=== PATIENT | male | born 1965 | race African-American/Black ===

== ENCOUNTER → 2017-01-01 | Outpatient (CLI) | payer OTHER ==
[~2017-01-01] MED LIST: AMOXICILLIN 50500 MG; AMOXICILLIN 8751 TAB PO; BP MED; CHOLESTEROL MED; FLEXERIL 1010 MG/TAB PO; HCTZ 25MG TAB25 MG PO; IRON325 MG PO; KLONOPIN 0.5MG0.5 MG PO; KLONOPIN 1MG1 MG PO; MEDROL 4MG DOSPA4 MG PO; MOBIC15 MG PO; OXECTA5 MG; PRAVACHOL 20MG20 MG PO; PREDNISONE20 MG PO; PROTONIX 40MG T40 MG PO; PROTONIX20 MG PO; REMERON30 MG PO; ROXICODONE 55 MG/TAB PO; SENNA PLUS 50 M1 TA1; SENOKOT S 50 MG1 TAB PO; VITAMIND3 5000 PO; ZOFRAN ODT4 MG PO; ZOLOFT 100MG100 MG PO; ZOLOFT 25MG25 MG
== END ==
LOC: BHSO 14:18
DX: F43.10 Post-traumatic stress disorder, unspecified (principal)

== ENCOUNTER → 2017-01-29 | Outpatient (CLI) | payer OTHER | LOC: BHSO 14:39 | DX: F43.10 Post-traumatic stress disorder, unspecified (principal) ==

== ENCOUNTER → 2017-03-05 | Outpatient (CLI) | payer OTHER | LOC: BHSO 15:32 | DX: F43.10 Post-traumatic stress disorder, unspecified (principal) ==

== ENCOUNTER → 2017-05-03 | Outpatient (CLI) | payer OTHER | LOC: BHSO 15:14 | DX: F43.10 Post-traumatic stress disorder, unspecified (principal) ==

== ENCOUNTER → 2017-07-19 | Outpatient (CLI) | payer OTHER | LOC: BHSO 14:12 | DX: F43.10 Post-traumatic stress disorder, unspecified (principal) ==

== ENCOUNTER 2017-09-17 18:56 | Emergency (ER) | payer OTHER ==
[~2017-09-17] VITALS: Ht 190.5 cm; Wt 97.7 kg
[2017-09-17 19:04] VITALS: BP 143/88; TEMP 97
[2017-09-17] MEDS ORDERED: NEURONTIN300 MG/CAP PO (19:21)
[2017-09-17 19:25] LABS: ADJUSTED CALCIUM 8.8 mg/dL (8.4-10.2); ALANINE AMINOTRANSFERASE 37 U/L (21-72); ALBUMIN 4.7 gm/dL (3.5-5.0); ALKALINE PHOSPHATASE 80 U/L (50-136); ANION GAP 12 mmol/L (7-16); BILIRUBIN,TOTAL 0.6 mg/dL (0.0-1.0); BLOOD UREA NITROGEN 14 mg/dL (9-20); CALCIUM 9.4 mg/dL (8.4-10.2); CARBON DIOXIDE 29 mmol/L (22-30); CHLORIDE 101 mmol/L (98-107); CREATININE, serum 1.16 mg/dL (0.66-1.25); GLUCOSE 62 mg/dL (74-106); POTASSIUM 3.2 mmol/L (3.4-5.0); SODIUM 143 mmol/L (137-145); TOTAL PROTEIN 7.9 gm/dL (6.4-8.2)
[2017-09-17 19:31] LABS: HEMATOCRIT 42.4 % (42.0-52.0); HEMOGLOBIN 14.4 g/dl (13.5-18.0); MEAN CELL VOLUME 77 fl (80.0-100.0); MEAN CORPUSCULAR HEMOGLOBIN 26 pg (27.0-31.0); MEAN CORPUSCULAR HGB CONC 34 g/dl (33.0-37.0); MEAN PLATELET VOLUME 10.3 fl (7.4-10.4); PLATELET COUNT 256 K/mm3 (130-400); PROTHROMBIN TIME 11.5 SECONDS (9.7-12.8); RED BLOOD COUNT 5.51 M/mm3 (4.20-5.60); WHITE BLOOD COUNT 8.7 K/mm3 (4.8-10.8)
[2017-09-17 19:34] LABS: PARTIAL THROMBOPLASTIN TIME 32.5 SECONDS (26.0-37.0)
[2017-09-17 19:45] LABS: ADD PATHOLOGY DIFF REVIEW NO
[2017-09-17 19:53] LABS: BASOPHIL 1 % (0-2); LYMPHOCYTE 51 % (20.0-51.0); NEUTROPHILS 23 % (42.0-75.2); TOTAL CELLS COUNTED 100
[2017-09-17 19:57] LABS: ANISOCYTOSIS 2+; HYPOCHROMIA 2+; PLATELET ESTIMATE NORMAL (NORMAL); TARGET CELLS 1+
[2017-09-17 20:03] LABS: TROPONIN-I < 0.012 ng/mL (0.000-0.034)
[2017-09-17] MEDS ORDERED: VOLTAREN 75 DR75 MG PO (20:37)
[2017-09-17 21:26] VITALS: PULSE 50
== END 2017-09-17 21:27 | disposition home or self-care (01) ==
LOC: COL.ER 18:56
PROVIDERS: Family Medicine
DX: R07.89 Other chest pain (principal); F32.9 Major depressive disorder, single episode, unspecified; I10 Essential (primary) hypertension
CPT/HCPCS: J1885

== ENCOUNTER → 2017-10-07 | Outpatient (CLI) | payer OTHER ==
[~2017-10-07] MED LIST changes: +NEURONTIN300 MG/CAP PO; +VOLTAREN 75 DR75 MG PO
== END ==
LOC: MHCPAIN 12:54
DX: M47.817 Spondylosis without myelopathy or radiculopathy, lumbosacral region (principal)

== ENCOUNTER → 2017-10-13 | Outpatient (CLI) | payer OTHER | LOC: MHCPAIN 13:15 | DX: G89.29 Other chronic pain (principal); M47.27 Other spondylosis with radiculopathy, lumbosacral region | CPT/HCPCS: G0463 ==

== ENCOUNTER → 2017-10-28 | Outpatient (CLI) | payer OTHER | LOC: MHCPAIN 10:38 | DX: M47.27 Other spondylosis with radiculopathy, lumbosacral region (principal); M99.53 Intervertebral disc stenosis of neural canal of lumbar region; M51.16 Intervertebral disc disorders with radiculopathy, lumbar region | CPT/HCPCS: J1100; J2250; J3010; Q9967 ==

== ENCOUNTER → 2017-11-10 | Outpatient (CLI) | payer OTHER | LOC: MHCPAIN 10:31 | DX: G89.29 Other chronic pain (principal); M47.27 Other spondylosis with radiculopathy, lumbosacral region | CPT/HCPCS: G0463 ==

== ENCOUNTER → 2017-12-02 | Outpatient (CLI) | payer OTHER | LOC: MHCPAIN 10:48 | DX: M43.07 Spondylolysis, lumbosacral region (principal) ==

== ENCOUNTER → 2017-12-15 | Outpatient (CLI) | payer OTHER | LOC: MHCPAIN 13:18 | DX: G89.29 Other chronic pain (principal); M47.27 Other spondylosis with radiculopathy, lumbosacral region; M53.3 Sacrococcygeal disorders, not elsewhere classified | CPT/HCPCS: G0463 ==

== ENCOUNTER → 2018-01-13 | Outpatient (CLI) | payer OTHER | LOC: MHCPAIN 12:10 | DX: M47.817 Spondylosis without myelopathy or radiculopathy, lumbosacral region (principal) | CPT/HCPCS: J1100; J2250; J3010 ==

== ENCOUNTER → 2018-02-09 | Outpatient (CLI) | payer OTHER | LOC: BHSO 10:09 | DX: F43.10 Post-traumatic stress disorder, unspecified (principal) | CPT/HCPCS: G0463 ==

== ENCOUNTER → 2018-02-23 | Outpatient (CLI) | payer OTHER | LOC: COL.RAD 13:52 | DX: M47.816 Spondylosis without myelopathy or radiculopathy, lumbar region (principal) ==

== ENCOUNTER → 2018-02-23 | Outpatient (CLI) | payer OTHER | LOC: MHCPAIN 13:10 | DX: G89.29 Other chronic pain (principal); M47.817 Spondylosis without myelopathy or radiculopathy, lumbosacral region; M54.16 Radiculopathy, lumbar region; M53.3 Sacrococcygeal disorders, not elsewhere classified | CPT/HCPCS: G0463 ==

== ENCOUNTER → 2018-05-12 | Outpatient (CLI) | payer OTHER | LOC: BHSO 13:51 | DX: F43.10 Post-traumatic stress disorder, unspecified (principal) | CPT/HCPCS: G0463 ==

== ENCOUNTER 2019-01-16 16:30 | Emergency (ER) | payer OTHER ==
[~2019-01-16] VITALS: Ht 190.5 cm; Wt 109.1 kg
[2019-01-16 17:30] LABS: BASO # 0.1 (0.0-0.2); BASO % 0.5 % (0.0-2.0); EOS % 0.2 % (0-4.0); GRAN # 4.4 (1.4-6.5); GRAN % 40.7 % (42.2-75.2); HEMATOCRIT 44.7 % (42.0-52.0); HEMOGLOBIN 15.5 g/dl (13.5-18.0); LYMPH # 5.6 (1.2-3.4); LYMPH % 52.5 % (20.0-51.0); MEAN CELL VOLUME 75 fl (80.0-100.0); MEAN CORPUSCULAR HEMOGLOBIN 26 pg (27.0-31.0); MEAN CORPUSCULAR HGB CONC 35 g/dl (33.0-37.0); MEAN PLATELET VOLUME 10.1 fl (7.4-10.4); MONO # 0.6 (0.1-0.6); MONO % 5.8 % (1.7-9.3); PLATELET COUNT 321 K/mm3 (130-400); RED BLOOD COUNT 5.98 M/mm3 (4.20-5.60); REDCELL DISTRIBUTION WIDTH-CV 14.5 % (11.5-14.5)
[2019-01-16 17:41] LABS: ALBUMIN 4.8 gm/dL (3.5-5.0); BILIRUBIN,TOTAL 0.8 mg/dL (0.0-1.0); CALCIUM 9.8 mg/dL (8.4-10.2); CREATININE, serum 1.18 mg/dL (0.66-1.25); TOTAL PROTEIN 8.6 gm/dL (6.4-8.2)
[2019-01-16] MEDS ORDERED: ZOFRAN ODT4 MG PO (19:12)
[2019-01-16 19:43] VITALS: BP 137/94; PULSE 62
== END 2019-01-16 19:45 | disposition home or self-care (01) ==
LOC: COL.ER 16:30
PROVIDERS: Emergency Medicine
DX: R11.2 Nausea with vomiting, unspecified (principal); R10.13 Epigastric pain; F43.10 Post-traumatic stress disorder, unspecified
CPT/HCPCS: J2405; J2550; J3010; J7030

== ENCOUNTER → 2020-06-17 | Outpatient (CLI) | payer OTHER | LOC: ZCOL.LAB 16:50 | DX: U07.1 COVID-19 (principal) ==

== ENCOUNTER 2022-03-26 11:27 | Emergency (ER) | payer OTHER | END 2022-03-26 12:08 | disposition left against medical advice (07) | LOC: COL.ER 11:27 | DX: R69 Illness, unspecified (principal) ==

== ENCOUNTER 2022-04-16 12:03 | Emergency (ER) | payer OTHER ==
[~2022-04-16] VITALS: Ht 190.5 cm; Wt 109.1 kg
[2022-04-16 12:17] VITALS: TEMP 97.2
[2022-04-16 14:19] LABS: HEMATOCRIT 42.9 % (42.0-52.0); HEMOGLOBIN 15.1 g/dl (13.5-18.0); MEAN CELL VOLUME 75 fl (80.0-100.0); MEAN CORPUSCULAR HEMOGLOBIN 26 pg (27-31); MEAN CORPUSCULAR HGB CONC 35 g/dl (33.0-37.0); MEAN PLATELET VOLUME 9.5 fl (7.4-10.4); PLATELET COUNT 280 K/mm3 (130-400); RED BLOOD COUNT 5.76 M/mm3 (4.20-5.60); REDCELL DISTRIBUTION WIDTH-CV 14.1 % (11.5-14.5)
[2022-04-16 14:40] LABS: ALBUMIN 4.1 gm/dL (3.5-5.0); BILIRUBIN,TOTAL 0.6 mg/dL (0.2-1.2); CALCIUM 9.1 mg/dL (8.4-10.2); CREATININE, serum 1.2 mg/dL (0.72-1.25); POTASSIUM 3.6 mmol/L (3.5-4.5); TOTAL PROTEIN 7.5 gm/dL (6.2-8.1)
[2022-04-16 14:58] LABS: EOSINOPHIL 1 % (0-4); LYMPHOCYTE 49 % (20.0-51.0); NEUTROPHILS 40 % (42.0-75.2); PLATELET ESTIMATE NORMAL (NORMAL)
[2022-04-16 14:59] LABS: MICROCYTOSIS 1+
[2022-04-16 15:00] VITALS: BP 142/77; PULSE 70
== END 2022-04-16 15:13 | disposition home or self-care (01) ==
LOC: COL.ER 12:03
PROVIDERS: Student in an Organized Health Care Education/Training Program
DX: K59.00 Constipation, unspecified (principal); R51.9 Headache, unspecified; Z20.822 Contact with and (suspected) exposure to COVID-19
CPT/HCPCS: J1885; J2765